=== PATIENT | female | born 1965 | race Caucasian/White ===

== ENCOUNTER 2018-06-16 10:14 | Emergency (ER) | payer MEDICAID, OTHER ==
--- NOTE | 2018-06-16 11:06 | ED ---
Skin Complaint - HPI Summary HPI Summary: Pt. is a 53 y.o female who presents to the ER for worsening infection to the back of her right lower leg. Pt. states she believes she was stung or bit by an insect several days ago. She states area has progressively become more painful and red. She is a diabetic. Pt. states she went to a clinic yesterday and was rx keflex. Pt. states she had chills yesterday but no documented fever. Symptoms are mild in severity. Touching affected area makes symptoms worse. Rest makes symptoms better. - History of Current Complaint Chief Complaint: EDRashSkinAbscess Time Seen by Provider: 06/16/18 10:29 Stated Complaint: INSECT BITE RT LEG Hx Obtained From: Patient Pain Intensity: 7 - Allergy/Home Medications Allergies/Adverse Reactions: Allergies Allergy/AdvReac Type Severity Reaction Status Date / Time diphenhydramine Allergy Unknown Verified 06/16/18 10:27 [From Benadryl] Reaction Details Penicillins Allergy Unknown Verified 06/16/18 10:27 Reaction Details cyclins Allergy Tachycardia Uncoded 06/16/18 10:27 Home Medications: Home Medications Flexeril 10 MG TAB* 10 mg PO PRN 06/16/18 [History] Keflex 500 CAP* 500 mg PO 06/16/18 [History] Metformin HCl 500 mg PO TID 06/16/18 [History Confirmed 06/16/18] Nexium 40 mg PO BID 06/16/18 [History Confirmed 06/16/18] hydroCHLOROthiazide 12.5 mg PO PRN 06/16/18 [History] PMH/Surg Hx/FS Hx/Imm Hx Previously Healthy: Yes Infectious Disease History: No Infectious Disease History: Denies: Traveled Outside the [place] in Last 30 Days - Social History Occupation: Disabled Lives: With Family Alcohol Use: None Substance Use Type: Reports: None Smoking Status (MU): Never Smoked Tobacco Review of Systems Positive: Chills. Negative: Fever Negative: Vomiting, Nausea Positive: Other - Redness and pain to back of right lower leg All Other Systems Reviewed And Are Negative: Yes Physical Exam Triage Information Reviewed: Yes Vital Signs On Initial Exam: Initial Vitals Temp Pulse Resp BP Pulse Ox 98 F 66 18 118/60 97 06/16/18 10:17 06/16/18 10:17 06/16/18 10:17 06/16/18 10:17 06/16/18 10:17 Vital Signs Reviewed: Yes Appearance: Positive: Well-Appearing - Pt. lying in bed in NAD. present. Head/Face: Positive: Normal Head/Face Inspection Eyes: Positive: Normal Neck: Positive: Supple Musculoskeletal: Positive: Other - Rougly 6cm annular region of erythema and pain noted to the posterior proximal right lower extremity, below knee. Area is indurated. No surround erythema. Neurological: Positive: Normal, CN Intact II-III Psychiatric: Positive: Affect/Mood Appropriate Diagnostics - Vital Signs Vital Signs Temp Pulse Resp BP Pulse Ox 06/16/18 10:17 98 F 66 18 118/60 97 - Laboratory Lab Statement: Any lab studies that have been ordered have been reviewed, and results considered in the medical decision making process. Course/Dx - Course Course Of Treatment: Patient presenting for infection to her leg. Afebrile well -appearing. Patient was examined by Dr. Pino as well. Obtain ultrasound to evaluate for drainable fluid collection. U/S shows no signs of abscess, per radiology. Will start on bactrim to cover MRSA. To continue keflex QID as directed. To apply warm compress and elevate. F.u with PCP for wound check in 2- 3 days. To return to ER for increased redness, swelling, fever, vomiting. Pt. understands and agrees with pain. - Differential Diagnoses - Skin Complaint Differential Diagnoses: Abscess, Cellulitis - Diagnoses Provider Diagnoses: Cellulitis Discharge - Sign-Out/Discharge Documenting (check all that apply): Patient Departure - Discharge Plan Condition: Good Disposition: HOME Prescriptions: Sulfamethox/Trimethoprim DS* [Bactrim DS 800/160 TAB*] 1 tab PO BID #20 tab Patient Education Materials: Cellulitis (ED) Referrals: Den CANALES,Ajay Ham [Primary Care Provider] - Additional Instructions: Schedule a follow up appointment with your PCP for recheck in 2-3 days Continue Keflex as directed Start Bactrim today as directed Apply warm compress and elevate leg Return to ER for increased redness, swelling, fever, vomiting - Billing Disposition and Condition Condition: GOOD Disposition: Home
--- NOTE | 2018-06-16 11:34 | RAD ---
HISTORY: evaluate for abscess, right posterior lower leg swelling and edema COMPARISONS: None. TECHNIQUE: Multiple transverse and longitudinal ultrasound images were obtained of the area of clinical abnormality of the right lower extremity using grayscale and color Doppler imaging. FINDINGS: There is subcutaneous edema without loculated fluid collection. There is no mass. IMPRESSION: EDEMA WITHOUT LOCULATED FLUID COLLECTION TO SUGGEST ABSCESS
[2018-06-16 12:12] VITALS: BP 114/67
== END 2018-06-16 12:11 | disposition home or self-care (01) ==
LOC: ED 10:14
DX: L03.115 Cellulitis of right lower limb (principal); E11.9 Type 2 diabetes mellitus without complications; Z79.84 Long term (current) use of oral hypoglycemic drugs; Z88.8 Allergy status to other drugs, medicaments and biological substances; Z88.0 Allergy status to penicillin; Z88.3 Allergy status to other anti-infective agents
CPT/HCPCS: 99282